=== PATIENT | female | born 1965 | race African-American/Black ===

== ENCOUNTER 2017-07-16 20:00 | Emergency (ER) | payer MEDICAID ==
[~2017-07-16] VITALS: Ht 160 cm; Wt 127.4 kg
[~2017-07-16 20:00] MED LIST: FURO-152 PO; GABA600T PO; HYDR-519 PO; KDUR10 PO; MELO15TA13 PO; TIZA4TAB4 PO; TRIA1TAB5 PO
[2017-07-16 21:21] VITALS: BP 152/95
== END 2017-07-17 01:18 | disposition left against medical advice (07) ==
LOC: ER 20:00
DX: H92.02 Otalgia, left ear (principal); Z53.21 Procedure and treatment not carried out due to patient leaving prior to being seen by health care provider

== ENCOUNTER 2022-10-25 17:03 | Emergency (ER) | payer MEDICAID, OTHER ==
[~2022-10-25] VITALS: Ht 162.6 cm; Wt 120.0 kg
[~2022-10-25 17:03] MED LIST changes: -KDUR10 PO; +POTA-189 PO; +TIZA-204 PO; -TIZA4TAB4 PO
[2022-10-25 17:49] LABS: EOSINOPHILS % 0.8 % (0.0-5.0); HEMATOCRIT. 43.7 % (36.0-48.0); HEMOGLOBIN. 14.2 g/dL (12.0-16.0); LYMPHOCYTES % 14.6 % (20.0-50.0); MEAN CORPUSCULAR HEMOGLOBIN 28.3 pg (28.0-32.0); MEAN CORPUSCULAR VOLUME 87.3 fL (81.0-99.0); MONOCYTES % 8.7 % (2.0-8.0); NEUTROPHILS % 74.9 % (40.0-76.0); PLATELET 319 x1000/uL (130-400); RED BLOOD CELL COUNT 5.01 mill/uL (4.2-5.4); RED CELL DISTRIBUTION WIDTH 15.6 % (11.6-14.6)
[2022-10-25 17:57] LABS: INR 1.2; PROTHROMBIN TIME 12.4 sec (9.6-11.0)
[2022-10-25 18:00] LABS: CHLORIDE 104 mEq/L (98-107)
[2022-10-25] MEDS ORDERED: FUROSEMIDE 40MG/4ML VIAL IV ONE (19:45)
[2022-10-25] MEDS ORDERED: ASPIRIN 81MG TABLET PO ONE (19:45)
[2022-10-25] MEDS ORDERED: ALBUTEROL (0.083%) 2.5MG/3ML NEB HHN STA (21:39)
[2022-10-25] MEDS ORDERED: FUROSEMIDE 40MG/4ML VIAL IV NR (21:45)
[2022-10-25] MEDS ORDERED: ASPIRIN 81MG TABLET PO NR (21:45)
[2022-10-26 00:24] VITALS: BP 115/79
[2022-10-26 00:38] LABS: CLARITY URINE CLEAR (CLEAR); COLOR URINE YELLOW (YELLOW); KETONES URINE NEGATIVE (NEGATIVE); LEUKOCYTE ESTERASE URINE NEGATIVE (NEGATIVE); NITRITE URINE NEGATIVE (NEGATIVE); OCCULT BLOOD URINE NEGATIVE (NEGATIVE); PROTEIN URINE NEGATIVE (NEGATIVE); SPECIFIC GRAVITY URINE 1.006 (1.005-1.030); UROBILINOGEN URINE 0.2 E.U./dL (0.2-1.0)
== END 2022-10-26 00:49 | disposition short-term general hospital (02) ==
LOC: ER 17:03
DX: I11.0 Hypertensive heart disease with heart failure (principal); I50.9 Heart failure, unspecified; Z79.899 Other long term (current) drug therapy; Z20.822 Contact with and (suspected) exposure to COVID-19
CPT/HCPCS: 36415; 71045; 80053; 81003; 83690; 83880; 84484; 85025; 85610; 87426; 93005; 94640; 96374; 99285; C9803; J1940; Z7610